=== PATIENT | male | born 1995 | race Caucasian/White ===

== ENCOUNTER → 2017-09-16 | Outpatient (CLI) | payer OTHER ==
--- NOTE | 2017-09-16 16:44 | PCVCIMAG ---
APPROVED REPORT Study performed: 09/16/2017 12:51:59 EXAM: Comprehensive 2D, Doppler, and color-flow Echocardiogram Patient Location: Echo lab BSA: 2.11 Indications Dizziness and Vertigo Tachycardia Pre-syncope 2D Dimensions LVEF(%): 49.81 (>50%) IVSd: 11.14 (7-11mm) LVDd: 53.76 mm PWd: 10.87 (7-11mm) LVDs: 40.05 (25-40mm) Left Atrium: 40.67 (27-40mm) Aortic Root: 30.05 mm LV Single Plane 4CH: 54.69 % LV Single Plane 2CH: 60.01 %Justin's LVEF: 57.35 % Biplane EF: 58.1 % Volumes Left Atrial Volume (Systole) Single Plane 4CH: 53.92 mLSingle Plane 2CH: 71.24 mL LA ESV Index: 31.00 mL/m2 Aortic Valve AoV Peak Leonard.: 1.15 m/s AO Peak Gr.: 5.30 mmHgLVOT Max P.18 mmHg LVOT Max V: 1.02 m/s Mitral Valve E/A Ratio: 1.5 MV Decel. Time: 297.99 ms MV E Max Leonard.: 0.51 m/s MV A Leonard.: 0.33 m/s IVRT: 110.73 ms Pulmonary Valve PV Peak Leonard.: 1.26 m/sPV Peak Gr.: 6.36 mmHg Pulmonary Vein P Vein S: 0.31 m/sP Vein A: 0.31 m/s P Vein D: 0.67 m/sP Vein A Dur.: 117.6 msec P Vein S/D Ratio: 0.46 Tricuspid Valve TR Peak Leonard.: 2.15 m/s TR Peak Gr.: 18.57 mmHg Left Ventricle The left ventricle is normal size. There is normal LV segmental wall motion. There is normal left ventricular wall thickness. Left ventricular systolic function is normal. The left ventricular ejection fraction is within the normal range. LVEF is 60%. The left ventricular diastolic function is normal. Right Ventricle The right ventricle is normal size. The right ventricular systolic function is normal. Atria The left atrium size is normal. The right atrium size is normal. Aortic Valve The aortic valve is normal in structure. No aortic regurgitation is present. There is no aortic valvular stenosis. Mitral Valve The mitral valve is normal in structure. Trace mitral regurgitation. No evidence of mitral valve stenosis. Tricuspid Valve The tricuspid valve is normal in structure. Trace tricuspid regurgitation with PAP of 26 mmHg. Pulmonic Valve The pulmonary valve is normal in structure. There is no pulmonic valvular regurgitation. Great Vessels The aortic root is normal in size. IVC is normal in size and collapses with >50% inspiration Pericardium There is no pericardial effusion. <Conclusion> The left ventricle is normal size. LVEF is 60%. The left ventricular diastolic function is normal. The right ventricle is normal size. The left atrium size is normal. The aortic valve is normal in structure. There is no aortic valvular stenosis. Trace mitral regurgitation. Trace tricuspid regurgitation with PAP of 26 mmHg. Trace mitral regurgitation. There is no pericardial effusion.
== END | disposition home or self-care (01) ==
LOC: PCVCIMAG 13:00
PROVIDERS: ATTEND Internal Medicine Cardiovascular Disease
DX: R42 Dizziness and giddiness (principal); R00.0 Tachycardia, unspecified; R55 Syncope and collapse; Z72.0 Tobacco use
CPT/HCPCS: 93306